=== PATIENT | male | born 1990 | race Caucasian/White ===

== ENCOUNTER 2017-01-28 19:08 | Emergency (ER) | payer OTHER ==
[2017-01-28 21:25] VITALS: BP 124/77
== END 2017-01-28 21:26 | disposition home or self-care (01) ==
LOC: ED 19:08
DX: S82.891A Other fracture of right lower leg, initial encounter for closed fracture (principal); X50.1XXA Overexertion from prolonged static or awkward postures, initial encounter; Y93.89 Activity, other specified; Y92.89 Other specified places as the place of occurrence of the external cause; Y99.8 Other external cause status
CPT/HCPCS: J1885

== ENCOUNTER 2017-08-29 08:57 | Emergency (ER) | payer OTHER ==
[~2017-08-29] VITALS: Ht 175.3 cm; Wt 89.8 kg
[2017-08-29 09:02] VITALS: BP 134/87
== END 2017-08-29 10:24 | disposition home or self-care (01) ==
LOC: ED 08:57
DX: K04.7 Periapical abscess without sinus (principal); R68.84 Jaw pain; R03.0 Elevated blood-pressure reading, without diagnosis of hypertension
CPT/HCPCS: J1885